=== PATIENT | male | born 1990 | race African-American/Black ===

== ENCOUNTER 2016-09-27 09:25 | Emergency (ER) | payer SELFPAY ==
[~2016-09-27] VITALS: Ht 167.6 cm; Wt 66.7 kg
[~2016-09-27 09:25] MED LIST: TRAZ100T15 PO
[2016-09-27] MEDS ORDERED: HYDROcodone/APAP 5/325 TABLET PO ONE (10:30)
[2016-09-27] MEDS ORDERED: HYDROcodone/APAP 5/325 TABLET ONE (10:40)
[2016-09-27 11:28] VITALS: BP 117/71
== END 2016-09-27 12:03 | disposition home or self-care (01) ==
LOC: ED 11:56
DX: S06.0X1A Concussion with loss of consciousness of 30 minutes or less, initial encounter (principal); S20.212A Contusion of left front wall of thorax, initial encounter; Y09 Assault by unspecified means; Y93.89 Activity, other specified; Y92.89 Other specified places as the place of occurrence of the external cause; Y99.9 Unspecified external cause status
CPT/HCPCS: 70450; 71250; 99284

== ENCOUNTER 2016-11-07 00:12 | Emergency (ER) | payer SELFPAY ==
[~2016-11-07] VITALS: Ht 167.6 cm; Wt 66.5 kg
[2016-11-07 00:15] VITALS: BP 136/100
[2016-11-07] MEDS ORDERED: IBUPROFEN 200 MG TABLET PO ONE (01:00)
[2016-11-07] MEDS ORDERED: HYDROcodone/APAP 5/325 TABLET PO ONE (01:00)
[2016-11-07] MEDS ORDERED: IBUPROFEN 200 MG TABLET ONE (01:14)
[2016-11-07] MEDS ORDERED: HYDROcodone/APAP 5/325 TABLET ONE (01:14)
== END 2016-11-07 01:21 | disposition home or self-care (01) ==
LOC: ED 00:51
DX: S90.31XA Contusion of right foot, initial encounter (principal); W24.1XXA Contact with transmission devices, not elsewhere classified, initial encounter; Y93.89 Activity, other specified; Y99.8 Other external cause status; Y92.89 Other specified places as the place of occurrence of the external cause
CPT/HCPCS: 99284

== ENCOUNTER 2016-11-09 22:00 | Emergency (ER) | payer SELFPAY ==
[~2016-11-09] VITALS: Ht 167.6 cm; Wt 64.3 kg
[2016-11-09 22:01] VITALS: BP 134/84
[2016-11-09] MEDS ORDERED: BACITRACIN ZINC OINT 500U/GM, 0.9 GM ONE ×2 (22:19→22:35)
== END 2016-11-09 22:52 | disposition home or self-care (01) ==
LOC: ED 22:41
DX: S01.312A Laceration without foreign body of left ear, initial encounter (principal); W45.8XXA Other foreign body or object entering through skin, initial encounter; Y93.89 Activity, other specified; Y92.89 Other specified places as the place of occurrence of the external cause; Y99.8 Other external cause status
CPT/HCPCS: 99283

== ENCOUNTER 2017-02-05 18:23 | Emergency (ER) | payer MEDICAID ==
[~2017-02-05] VITALS: Ht 167.6 cm; Wt 68.3 kg
[2017-02-05 18:25] VITALS: BP 144/91
== END 2017-02-05 19:40 | disposition home or self-care (01) ==
LOC: ED 19:34
DX: S46.911A Strain of unspecified muscle, fascia and tendon at shoulder and upper arm level, right arm, initial encounter (principal); S00.83XA Contusion of other part of head, initial encounter; S80.811A Abrasion, right lower leg, initial encounter; F17.200 Nicotine dependence, unspecified, uncomplicated; F43.10 Post-traumatic stress disorder, unspecified; X58.XXXA Exposure to other specified factors, initial encounter; Y93.89 Activity, other specified; Y92.009 Unspecified place in unspecified non-institutional (private) residence as the place of occurrence of the external cause; Y99.8 Other external cause status
CPT/HCPCS: 70486; 99284

== ENCOUNTER 2017-02-07 20:07 | Observation (INO) | payer MEDICAID ==
[~2017-02-07] VITALS: Ht 167.6 cm; Wt 59.7 kg
[2017-02-07 21:32] LABS: HEMATOCRIT 39.7 % (39.2-51.8); WHITE BLOOD COUNT 13.3 x10^3/uL (3.4-10)
[2017-02-07 21:42] LABS: ASPARTATE AMINO TRANSFERASE 59 U/L (15-37); BLOOD UREA NITROGEN 10 mg/dL (7-18)
[2017-02-07 21:45] LABS: ACETAMINOPHEN < 2 mcg/mL (10-30)
[2017-02-07 21:50] LABS: DAU SCREEN DISCLAIMER
[2017-02-07] MEDS ORDERED: ONDANSETRON ODT 4 MG PO PRN (23:30)
[2017-02-07] MEDS ORDERED: ACETAMINOPHEN 325 MG TABLET PO PRN (23:30)
[2017-02-07] MEDS ORDERED: LORazepam 1MG TABLET PO PRN (23:30)
[2017-02-08] MEDS: QUETIAPINE 25MG TABLET PO SCH ×3 (00:11→21:30)
[2017-02-08 00:14] VITALS: BP 151/101
[2017-02-08 05:41] LABS: HEMATOCRIT 39.6 % (39.2-51.8); WHITE BLOOD COUNT 8.8 x10^3/uL (3.4-10)
[2017-02-08 06:13] VITALS: BP 145/92
[2017-02-08 07:45] VITALS: BP 127/83
[2017-02-08 16:59] VITALS: BP 130/81
[2017-02-08 19:29] VITALS: BP 129/71
[2017-02-09 08:00] VITALS: BP 121/81
[2017-02-09] MEDS: QUETIAPINE 25MG TABLET PO SCH (08:17)
== END 2017-02-09 10:00 ==
LOC: ED 20:37 → SUATTDRO 23:14 → EDIP 23:17 → INTOOBSV 23:17 → 3E 02-08
PROVIDERS: ADMIT Hospitalist; ATTEND Internal Medicine
DX: R45.851 Suicidal ideations (principal); F43.10 Post-traumatic stress disorder, unspecified; R65.10 Systemic inflammatory response syndrome (SIRS) of non-infectious origin without acute organ dysfunction; F15.90 Other stimulant use, unspecified, uncomplicated; F32.9 Major depressive disorder, single episode, unspecified; F19.959 Other psychoactive substance use, unspecified with psychoactive substance-induced psychotic disorder, unspecified
CPT/HCPCS: 36415; 70450; 80053; 80307; 80329; 83735; 84443; 85025; 99285; G0378; G0479; G0480